=== PATIENT | female | born 1985 | race African-American/Black ===

== ENCOUNTER 2017-12-17 15:04 | Emergency (ER) | payer OTHER ==
[~2017-12-17] VITALS: Ht 157.5 cm; Wt 54.4 kg
[~2017-12-17 15:04] MED LIST: ACYCLOVIR 400400 MG PO; AMOXICILLIN 50500 MG PO; FAMOTIDINE PO; IBUPROFEN 600600 M1 PO; KEFLEX500 M1 PO; KEFLEX500 MG PO; LIDOCAINE 22 %/30 GM MM; NOHOMEMEDICATIONS; NORCO 5-325 TA1 EACH PO; SENNA PO; SIMETHICON CHEW80 M1 PO; VICODIN 5-5001 EACH PO; ZOFRAN4 MG PO; ZPAK PO; [UNRECOGNIZED DRUG - OTHER] PO
[2017-12-17 16:14] VITALS: BP 114/75
== END 2017-12-17 16:15 | disposition home or self-care (01) ==
LOC: ER 15:04
DX: Z53.21 Procedure and treatment not carried out due to patient leaving prior to being seen by health care provider (principal)

== ENCOUNTER 2020-03-09 12:30 | Emergency (ER) | payer OTHER ==
[~2020-03-09] VITALS: Ht 160 cm; Wt 63.5 kg
[2020-03-09 13:34] LABS: URINE BILIRUBIN NEGATIVE (Negative); URINE BLOOD NEGATIVE (Negative); URINE CLARITY CLEAR; URINE COLOR YELLOW; URINE GLUCOSE-RANDOM* NEGATIVE (Negative); URINE KETONES NEGATIVE (Negative); URINE LEUKOCYTES-REFLEX NEGATIVE (Negative); URINE NITRITE-REFLEX NEGATIVE (Negative); URINE PROTEIN (DIPSTICK) NEGATIVE (Negative); URINE SPECIFIC GRAVITY >= 1.030 (1.005-1.035); URINE UROBILINOGEN 0.2 E.U./dl (0.2-1.0)
[2020-03-09] MEDS ORDERED: COMFORT PAC-CYC10 MG PO (15:10)
[2020-03-09] MEDS ORDERED: MEDROLDOSEPACK PO (15:10)
[2020-03-09] MEDS ORDERED: NORCO 5-325 TA1 EAC2 PO (15:10)
[2020-03-09 15:18] VITALS: BP 129/80
== END 2020-03-09 15:18 | disposition home or self-care (01) ==
LOC: ER 12:30
PROVIDERS: Physician Assistant
DX: M54.5 Low back pain (principal); Z98.890 Other specified postprocedural states